=== PATIENT | male | born 1955 | race Caucasian/White ===

== ENCOUNTER → 2024-03-27 07:12 | Outpatient (REF) | payer OTHER, SELFPAY ==
[2024-03-27 10:00] LABS: ALT (SGPT) 61 U/L (0-50); AST (SGOT) 49 U/L (17-59); Alkaline Phosphatase 68 U/L (38-126); Blood Urea Nitrogen 21 mg/dl (9-20); Calcium 9.7 mg/dl (8.4-10.2); Carbon Dioxide 22 mmol/L (22-30); Chloride 105 mmol/L (98-107); Glucose 124 mg/dl (70-99); HDL Cholesterol 41 mg/dl; LDL Cholesterol, Calculated 123 mg/dl; Potassium 4.1 mmol/L (3.5-5.1); Sodium 138 mmol/L (135-145); Total Cholesterol 230 mg/dl (50-199); Total Protein 7.5 g/dl (6.3-8.2); Triglyceride 331 mg/dl (10-149); Very Low Density Lipoprotein 66 mg/dl (0-30); eGFR > 60.00
[2024-03-27 10:49] LABS: Glycohemoglobin (HgbA1c) 5.4 % (4.0-5.6)
== END ==
LOC: HWLAB 07:12
PROVIDERS: ATTENDING PHYSICIAN Internal Medicine
DX: E78.5 Hyperlipidemia, unspecified (principal); R73.01 Impaired fasting glucose
CPT/HCPCS: 36415; 80053; 80061; 83036

== ENCOUNTER → 2024-08-13 11:21 | Outpatient (REF) | payer OTHER, SELFPAY | LOC: HWRAD 11:21 | PROVIDERS: ATTENDING PHYSICIAN Internal Medicine | DX: R91.8 Other nonspecific abnormal finding of lung field (principal); Z87.891 Personal history of nicotine dependence | CPT/HCPCS: 71250 ==

== ENCOUNTER → 2024-10-02 07:14 | Outpatient (REF) | payer OTHER, SELFPAY ==
[2024-10-02 10:18] LABS: ALT (SGPT) 84 U/L (0-50); AST (SGOT) 70 U/L (17-59); Albumin 5.1 g/dl (3.5-5.0); Alkaline Phosphatase 60 U/L (38-126); Blood Urea Nitrogen 26 mg/dl (9-20); Calcium 9.4 mg/dl (8.4-10.2); Carbon Dioxide 26 mmol/L (22-30); Chloride 99 mmol/L (98-107); Glucose 135 mg/dl (70-99); Potassium 4.3 mmol/L (3.5-5.1); Sodium 140 mmol/L (135-145); Total Bilirubin 0.9 mg/dl (0.2-1.3); Total Protein 7.9 g/dl (6.3-8.2); eGFR 59.47
== END ==
LOC: HWLAB 07:14
PROVIDERS: ATTENDING PHYSICIAN Internal Medicine Gastroenterology; FAMILY PHYSICIAN Internal Medicine
DX: K76.0 Fatty (change of) liver, not elsewhere classified (principal)
CPT/HCPCS: 36415; 80053

== ENCOUNTER → 2024-10-27 07:22 | Outpatient (REF) | payer OTHER, SELFPAY ==
[2024-10-27 10:10] LABS: ALT (SGPT) 75 U/L (0-50); AST (SGOT) 56 U/L (17-59); Albumin 4.7 g/dl (3.5-5.0); Alkaline Phosphatase 63 U/L (38-126); Direct Bilirubin 0.3 mg/dl (0.0-0.4); HDL Cholesterol 37 mg/dl; LDL Cholesterol, Calculated 40 mg/dl; Total Bilirubin 0.7 mg/dl (0.2-1.3); Total Cholesterol 148 mg/dl (50-199); Total Protein 7.5 g/dl (6.3-8.2); Triglyceride 358 mg/dl (10-149); Very Low Density Lipoprotein 71 mg/dl (0-30)
[2024-10-27 10:41] LABS: PSA, Total - Screen 1.37 ng/ml (0.0-4.0)
[2024-10-27 12:25] LABS: Glycohemoglobin (HgbA1c) 5.3 % (4.0-5.6)
== END ==
LOC: HWLAB 07:22
PROVIDERS: ATTENDING PHYSICIAN Internal Medicine Gastroenterology; FAMILY PHYSICIAN Internal Medicine
DX: E78.5 Hyperlipidemia, unspecified (principal); Z00.01 Encounter for general adult medical examination with abnormal findings; Z12.5 Encounter for screening for malignant neoplasm of prostate; R73.01 Impaired fasting glucose; K75.81 Nonalcoholic steatohepatitis (NASH)
CPT/HCPCS: 36415; 80061; 80076; 83036; G0103